=== PATIENT | male | born 1965 | race Asian ===

== ENCOUNTER 2018-09-11 23:15 | Emergency (ER) | payer OTHER ==
--- NOTE | 2018-09-12 02:52 | Emergency Department Report ---
- General Chief complaint: Skin/Abscess/Foreign Body Stated complaint: INSECT BITE TO FOREHEAD Time Seen by Provider: 09/12/18 02:26 Source: patient Mode of arrival: Ambulatory Limitations: No Limitations - History of Present Illness Initial comments: Pt is a 52 yo male who presents to the ED with c/o edema and erythema to the right side of his forehead that began two days ago. The patient states he has associated itching. He denies any fever, drainage, or N/V. The patient did not see or feel anything bite him. He states he has been using neosporin and benadryl without relief. - Related Data Previous Rx's Medication Instructions Recorded Last Taken Type Neomycin/Bacitracin/Polymyxinb 15 gm TP BID #1 oint...g. 09/12/18 Unknown Rx [Triple Antibiotic Ointment] cephALEXin [Keflex] 500 mg PO QID 5 Days #20 capsule 09/12/18 Unknown Rx Allergies Allergy/AdvReac Type Severity Reaction Status Date / Time No Known Allergies Allergy Verified 09/11/18 23:21 Abscess Boil HPI - HPI Chief Complaint: Skin/Abscess/Foreign Body Stated Complaint: INSECT BITE TO FOREHEAD Time Seen by Provider: 09/12/18 02:26 Home Medications: Previous Rx's Medication Instructions Recorded Last Taken Type Neomycin/Bacitracin/Polymyxinb 15 gm TP BID #1 oint...g. 09/12/18 Unknown Rx [Triple Antibiotic Ointment] cephALEXin [Keflex] 500 mg PO QID 5 Days #20 capsule 09/12/18 Unknown Rx Allergies/Adverse Reactions: Allergies Allergy/AdvReac Type Severity Reaction Status Date / Time No Known Allergies Allergy Verified 09/11/18 23:21 ED Review of Systems ROS: Stated complaint: INSECT BITE TO FOREHEAD Other details as noted in HPI Comment: All other systems reviewed and negative ED Past Medical Hx - Past Medical History Previous Medical History?: No - Surgical History Past Surgical History?: No - Social History Smoking Status: Never Smoker Substance Use Type: None - Medications Home Medications: Home Medications Medication Instructions Recorded Confirmed Last Taken Type Neomycin/Bacitracin/Polymyxinb 15 gm TP BID #1 oint...g. 09/12/18 Unknown Rx [Triple Antibiotic Ointment] cephALEXin [Keflex] 500 mg PO QID 5 Days #20 capsule 09/12/18 Unknown Rx ED Physical Exam - General Limitations: No Limitations General appearance: alert, in no apparent distress - Head Head exam: Present: atraumatic - Eye Eye exam: Present: normal appearance, PERRL - ENT ENT exam: Present: mucous membranes moist - Respiratory Respiratory exam: Present: normal lung sounds bilaterally. Absent: respiratory distress, wheezes, rales, rhonchi, stridor, chest wall tenderness, accessory muscle use, decreased breath sounds, prolonged expiratory - Cardiovascular Cardiovascular Exam: Present: regular rate, normal rhythm, normal heart sounds. Absent: systolic murmur, diastolic murmur, rubs, gallop - Neurological Exam Neurological exam: Present: alert, oriented X3 - Psychiatric Psychiatric exam: Present: normal affect, normal mood - Skin Skin exam: Present: warm, dry, other (2 cm area of induration and erythema to t he right forehead, no obvious drainage, no obvious fluctuance, small abrasion where it appears pt has been scratching) ED Course Vital Signs 09/11/18 23:18 Temperature 99.0 F Pulse Rate 77 Respiratory 16 Rate Blood Pressure 131/86 [Right] O2 Sat by Pulse 99 Oximetry ED Medical Decision Making - Medical Decision Making Pt is a 52 yo male who presents to the ED with c/o edema and erythema to the right side of his forehead that began two days ago. The patient states he has associated itching. He denies any fever, drainage, or N/V. The patient did not see or feel anything bite him. He states he has been using neosporin and benadryl without relief. on examination pt has area of induration and erythema to the right forehead, no fluctuance, no drainage, appears to have abrasion where pt has been scratching, small area of cellulitis. Will give pt keflex and triple antibiotic cream. Advised to use all medication as prescribed. Follow up with PCP in the next 2-3 days. Return to the ED for any new or worsening symptoms. Critical care attestation.: If time is entered above; I have spent that time in minutes in the direct care of this critically ill patient, excluding procedure time. ED Disposition Clinical Impression: Insect bite Qualifiers: Encounter type: initial encounter Site of insect bite: head Site of insect bite of head: other part Qualified Code(s): S00.96XA - Insect bite (nonvenomous) of unspecified part of head, initial encounter Cellulitis Qualifiers: Site of cellulitis: face Qualified Code(s): L03.211 - Cellulitis of face Disposition: TO HOME OR SELFCARE Is pt being admited?: No Does the pt Need Aspirin: No Condition: Stable Instructions: Cellulitis (ED), Insect Bite or Sting (ED) Additional Instructions: Please use medication as prescribed. Continue to use benadryl for itching. Follow up with a primary care doctor in the next 3 days for reevaluation. Return to the emergency room for any new or worsening symptoms. Prescriptions: cephALEXin [Keflex] 500 mg PO QID 5 Days #20 capsule Neomycin/Bacitracin/Polymyxinb [Triple Antibiotic Ointment] 15 gm TP BID #1 oint...g. Referrals: JULIETA RIOS MD [Primary Care Provider] - 2-3 Days Time of Disposition: 02:50 Print Language: MALAGASY
[2018-09-12 02:59] VITALS: BP 131/86
== END 2018-09-12 03:00 | disposition home or self-care (01) ==
LOC: ED 23:15
DX: S00.96XA Insect bite (nonvenomous) of unspecified part of head, initial encounter (principal); L03.211 Cellulitis of face; X58.XXXA Exposure to other specified factors, initial encounter; Y93.89 Activity, other specified; Y92.89 Other specified places as the place of occurrence of the external cause; Y99.8 Other external cause status
CPT/HCPCS: 99282